=== PATIENT | female | born 1960 | race Caucasian/White ===

== ENCOUNTER 2017-02-12 11:38 | Emergency (ER) | payer OTHER ==
[~2017-02-12] VITALS: Ht 167.6 cm; Wt 68.0 kg
[~2017-02-12 11:38] MED LIST: ALPR.25 PO; ALPR.5 PO; CLIN1CAP6 PO; COLL30OI3 TOP; FLAG500T PO; IBUP600 PO; LACT PO; LEVO25TA36 PO; LEXA20TA PO; LORTA5 PO; METR500I3 PO; METR500T10 PO; MULT-65 PO; NORC5TAB PO; PRED1 PO; SILD20TA PO; SSD1CRE TOP; VITA500T83 PO; VITA50TA10 PO; XANA0.5T PO; [UNRECOGNIZED DRUG - CODE] TOPICAL
[2017-02-12 11:40] VITALS: BP 125/63; PULSE 86; RESP 20; TEMP 98.7; O2SAT 97
--- NOTE | 2017-02-12 11:45 | PD ---
Physical Exam Date Seen by Provider: Feb 12, 2017 Time Seen by Provider: 11:43 Narrative 56 yo female that presents to the ED for "blocked salivary gland". Went to PCP and was told to come to the ED if it turns red or causes pain with swallowing. Has immune disorder and has had this in the past. Pain is 9/10. No other complaints. Took clindamycin and flagyl. Vitals sign stable. Patient awaiting bed placement Data Data Last Documented VS Vital Signs Date Time Temp Pulse Resp B/P Pulse Ox O2 Delivery O2 Flow Rate FiO2 02/12/17 11:40 98.7 86 20 125/63 97 Room Air [facility] Medical Record Reviewed: Yes Supervised Visit with JUANITO: No Alfonso Ospina Feb 12, 2017 11:45
[2017-02-12] MEDS ORDERED: ALPR.25 PO (12:26)
[2017-02-12] MEDS ORDERED: SILD20TA11 PO (12:26)
[2017-02-12] MEDS ORDERED: PRED5TAB PO (12:26)
[2017-02-12] MEDS ORDERED: ESCI20TA PO (12:26)
[2017-02-12] MEDS ORDERED: LEVO200T4 PO (12:26)
--- NOTE | 2017-02-12 12:59 | PD ---
HPI Chief Complaint: Facial Pain or Swelling Time Seen by Provider: 12:43 Travel History International Travel<30 days: No Contact w/Intl Traveler<30days: No Traveled to known affect area: No History of Present Illness HPI Patient 56-year-old female with a history of scleroderma presents with facial swelling to the right side of her neck and face for the past few days. Patient states took the Cipro and Flagyl at home that she had left over for an infection of her right hand. Patient states she went to her primary care physician who recommended that she come in to the emergency department to be seen and evaluated. She is denying any fevers. She states she's also noticed that she's had some hoarseness of voice. Denies any weight loss. Denies any dental problems. PFSH Past Medical History Hx Anticoagulant Therapy: Yes (325MG ASA DAILY) Arthritis: Yes Anxiety: Yes Depression: No Cancer: No Cardiovascular Problems: No Diabetes: No Endocrine: Yes Genitourinary: No Hepatitis: No Hiatal Hernia: No Immune Disorder: Yes (SCLERODERMA; MIXED CONNECTIVE TISSUE DISEASE) Medical other: Yes Musculoskeletal: Yes (ARTHRITIS) Neurologic: Yes Psychiatric: Yes (ANXIETY) Respiratory: No Migraines: No (OCCASIONALLY) Thyroid Disease: Yes (hypo) ?: Not Past Surgical History Abdominal Surgery: No Body Medical Devices: N/A Cardiac Surgery: No Ear Surgery: No Endocrine Surgery: No Eye Surgery: Yes (BILATERAL CATARACTS REMOVED) Genitourinary Surgery: No Gynecologic Surgery: Yes (D&C ; OVARIAN CYST EXCISION) Oral Surgery: Yes (CROWNS) Pacemaker: No Thoracic Surgery: No Other Surgery: Yes (stem cell grafts to left thumb and left middle finger.) Social History Alcohol Use: No Tobacco Use: No Substance Use: No Allergies-Medications (Allergen,Severity, Reaction): Coded Allergies: Ancef (Verified Allergy, Severe, Swelling, 02/12/17) Diflucan (Verified Allergy, Severe, HIVES, ITCHING, 02/12/17) CANNOT TOLERATE GENERIC Erythromycins (Verified Allergy, Severe, HIVES, ITCHING, 02/12/17) Percocet (Verified Allergy, Severe, 02/12/17) Rocephin (Verified Allergy, Severe, Swelling, 02/12/17) CAN TOLERATE WITH BENADRYL Succinylcholine (Verified Allergy, Severe, Drowsiness, 02/12/17) Sulfa (Verified Allergy, Severe, HIVES, ITCHING, 02/12/17) Vancomycin (Verified Allergy, Severe, HIVES, ITCHING, 02/12/17) Reported Meds & Prescriptions Reported Meds & Active Scripts Active Medrol Dosepak (Methylprednisolone) 4 Mg Dspk 4 Mg PO DIRECTED Per Pharmacist direction Pil[place] 5 Mg Tab 5 Mg PO Q8HR Flagyl (Metronidazole) 500 Mg Tab 500 Mg PO BID 10 Days Clindamycin (Clindamycin HCl) 300 Mg Cap 300 Mg PO Q6H 10 Days [place] (Hydrocodone-Acetaminophen) 5-325 mg Tab 1-2 Tab PO Q6H PRN Metronidazole 500 Mg Tab 500 Mg PO BID Clindamycin (Clindamycin HCl) 300 Mg Cap 300 Mg PO Q6H Reported Escitalopram (Escitalopram Oxalate) 20 Mg Tab 20 Mg PO DAILY Xanax (Alprazolam) 0.25 Mg Tab 0.25 Mg PO HS PRN Sildenafil 20 Mg Tab 20 Mg PO BID Levothyroxine (Levothyroxine Sodium) 200 Mcg Tab 625 Mcg PO DAILY Prednisone 5 Mg Tab 5 Mg PO DAILY Review of Systems Except as stated in HPI: all other systems reviewed are Neg Physical Exam Narrative GENERAL: WD, WN in nad. SKIN: Warm and dry. HEAD: Atraumatic. Normocephalic. EYES: Pupils equal and round. No scleral icterus. No injection or drainage. ENT: No nasal bleeding or discharge. Mucous membranes pink and moist. NECK: Trachea midline. No JVD. Tender swelling to right sided of neck just at mandible and just over mandible. No lymphadenopathy. Swallow intact. Airway patent. CARDIOVASCULAR: Regular rate and rhythm. RESPIRATORY: No accessory muscle use. Clear to auscultation. Breath sounds equal bilaterally. GASTROINTESTINAL: Abdomen soft, non-tender, nondistended. Hepatic and splenic margins not palpable. MUSCULOSKELETAL: Extremities without clubbing, cyanosis, or edema. No obvious deformities. NEUROLOGICAL: Awake and alert. No obvious cranial nerve deficits. Motor grossly within normal limits. Five out of 5 muscle strength in the arms and legs. Normal speech. PSYCHIATRIC: Appropriate mood and affect; insight and judgment normal. Data Data Last Documented VS Vital Signs Date Time Temp Pulse Resp B/P Pulse Ox O2 Delivery O2 Flow Rate FiO2 02/12/17 16:30 67 20 129/69 98 Room Air 02/12/17 11:40 98.7 Orders Complete Blood Count With Diff (02/12/17 12:46) Comprehensive Metabolic Panel (02/12/17 12:46) Magnesium (Mg) (02/12/17 12:46) Prothrombin Time / Inr (Pt) (02/12/17 12:46) Act Partial Throm Time (Ptt) (02/12/17 12:46) Ecg Monitoring (02/12/17 12:46) Iv Access Insert/Monitor (02/12/17 12:46) Oximetry (02/12/17 12:46) Oxygen Administration (02/12/17 12:46) Sodium Chloride 0.9% Flush (Ns Flush) (02/12/17 13:00) Chest, Pa & Lat (02/12/17 12:46) Ct Brain W/O Iv Contrast(Rout) (02/12/17 ) Ct Soft Tiss Neck W Iv Cont (02/12/17 ) Iohexol 350 Inj (Omnipaque 350 Inj) (02/12/17 14:59) Ibuprofen (Motrin) (02/12/17 15:30) Labs Laboratory Tests Test 02/12/17 13:10 White Blood Count 12.3 TH/MM3 Red Blood Count 3.56 MIL/MM3 Hemoglobin 10.8 GM/DL Hematocrit 32.2 % Mean Corpuscular Volume 90.5 FL Mean Corpuscular Hemoglobin 30.4 PG Mean Corpuscular Hemoglobin 33.6 % Concent Red Cell Distribution Width 15.4 % Platelet Count 185 TH/MM3 Mean Platelet Volume 8.4 FL Neutrophils (%) (Auto) 84.8 % Lymphocytes (%) (Auto) 5.8 % Monocytes (%) (Auto) 8.6 % Eosinophils (%) (Auto) 0.4 % Basophils (%) (Auto) 0.4 % Neutrophils # (Auto) 10.4 TH/MM3 Lymphocytes # (Auto) 0.7 TH/MM3 Monocytes # (Auto) 1.1 TH/MM3 Eosinophils # (Auto) 0.0 TH/MM3 Basophils # (Auto) 0.0 TH/MM3 CBC Comment AUTO DIFF Differential Total Cells 100 Counted Neutrophils % (Manual) 74 % Band Neutrophils % 10 % Lymphocytes % 7 % Monocytes % 9 % Neutrophils # (Manual) 10.3 TH/MM3 Differential Comment FINAL DIFF MANUAL Platelet Estimate NORMAL Platelet Morphology Comment CLUMPED Red Cell Morphology Comment NORMAL Prothrombin Time 10.3 SEC Prothromb Time International 0.9 RATIO Ratio Activated Partial 27.0 SEC Thromboplast Time Sodium Level 139 MEQ/L Potassium Level 4.4 MEQ/L Chloride Level 105 MEQ/L Carbon Dioxide Level 26.2 MEQ/L Anion Gap 8 MEQ/L Blood Urea Nitrogen 21 MG/DL Creatinine 1.30 MG/DL Estimat Glomerular Filtration 43 ML/MIN Rate Random Glucose 106 MG/DL Calcium Level 8.8 MG/DL Magnesium Level 2.2 MG/DL Total Bilirubin 0.3 MG/DL Aspartate Amino Transf 29 U/L (AST/SGOT) Alanine Aminotransferase 23 U/L (ALT/SGPT) Alkaline Phosphatase 76 U/L Total Protein 7.0 GM/DL Albumin 2.9 GM/DL [facility] Medical Decision Making Medical Screen Exam Complete: Yes Emergency Medical Condition: Yes Differential Diagnosis Sialoadenitis, parotiditis, mass, infection. Narrative Course Last [address] 02/12/17 0000 Signed Impressions: Service Date/Time: Sunday, February 12, 2017 14:59 - CONCLUSION: Markedly abnormal right neck probably related to the parotid gland. Sialoadenitis would be consideration. A neoplastic or an inflammatory process in the dental origin is thought to be less likely. Darien Hankins MD FACR Head CT 02/12/17 0000 Signed Impressions: Service Date/Time: Sunday, February 12, 2017 14:55 - CONCLUSION: Unremarkable exam. Efren Sauceda MD Patient appears well, declined pain medication initially. Then given ibuprofen. States its ok until she touches it. Patient discussed with Dr. Culver. He recommends augmentin, pilocarpine, medrol dose pack and follow up with him on wednesday (three days). Patient is on chronic steroids. Has allergy to ancef but cannot remember specific reaction. Will use clindamycin instead which she has not had problems with. No history of GB disease nor glaucoma. Will prescribe flagyl for history of C-diff. Diagnosis Primary Impression: Sialadenitis Referrals: Deni Culver MD Additional Instructions: Call Dr. Culver at [phone], he can see you on Wednesday in his office in [place]. Med/Other Pt SpecificInfo: Prescription(s) given Scripts Methylprednisolone Dosepak (Medrol Dosepak)4 Mg Dspk4 Mg PO DIRECTED #1 DSPK Ref 0 Per Pharmacist direction Prov:Dash Hansen MD 02/12/17 [place] 5 Mg Tab5 Mg PO Q8HR #30 TAB Ref 0 Prov:Dash Hansen MD 02/12/17 Metronidazole (Flagyl)500 Mg [id number] Mg PO BID 10 Days Ref 0 Prov:Dash Hansen MD 02/12/17 Clindamycin 300 Mg [id number] Mg PO Q6H 10 Days Ref 0 Prov:Dash Hansen MD 02/12/17 Disposition: 01 DISCHARGE HOME Condition: Stable Dash Hansen MD Feb 12, 2017 12:59
[2017-02-12] MEDS ORDERED: SODIUM CHLORIDE 0.9% FLUSH 10 ML FLUSH IVF PRN (13:00)
[2017-02-12 13:32] LABS: AUTOMATED NEUTROPHIL # 10.4 TH/MM3 (1.8-7.7); BASOPHIL % 0.4 % (0.0-2.0); EOSINOPHIL % 0.4 % (0.0-4.0); HEMATOCRIT 32.2 % (35.0-46.0); LYMPH % 5.8 % (9.0-44.0); LYMPHOCYTE # 0.7 TH/MM3 (1.0-4.8); MEAN CELL VOLUME 90.5 FL (80.0-100.0); MEAN CORPUSCULAR HEMOGLOBIN 30.4 PG (27.0-34.0); MEAN CORPUSCULAR HGB CONC 33.6 % (32.0-36.0); MONO % 8.6 % (0.0-8.0); NEUT % 84.8 % (16.0-70.0); RED BLOOD COUNT 3.56 MIL/MM3 (4.00-5.30); RED CELL DISTRIBUTION WIDTH 15.4 % (11.6-17.2); WHITE BLOOD COUNT 12.3 TH/MM3 (4.0-11.0)
--- NOTE | 2017-02-12 13:35 | RADRPT ---
EXAM DATE/TIME: 02/12/2017 13:06 [facility] COMPARISON: No previous studies available for comparison. INDICATIONS : Chest pain. MEDICAL HISTORY : None. SURGICAL HISTORY : None. ENCOUNTER: Initial ACUITY: 4 - 6 days PAIN SCORE: 3/10 LOCATION: Bilateral chest FINDINGS: The lungs are clear without infiltrate, nodule, or mass. There is no appreciable pleural effusion fo r technique. Heart and mediastinum are unremarkable. IMPRESSION: No acute cardiopulmonary disease. Nieves Faulkner MD on February 12, 2017 at 13:32 Board Certified Radiologist. This report was verified electronically.
[2017-02-12 13:44] LABS: HEMO FLAGS AUTO DIFF; PLATELET COUNT 185 TH/MM3 (150-450)
[2017-02-12 13:54] LABS: ALT (GPT) 23 U/L (10-53); ANION GAP 8 MEQ/L (5-15); AST (GOT) 29 U/L (15-37); BICARBONATE 26.2 MEQ/L (21.0-32.0); BLOOD UREA NITROGEN 21 MG/DL (7-18); CHLORIDE 105 MEQ/L (98-107); GLOMERULAR FILTRATION RATE 43 ML/MIN (>89); MAGNESIUM 2.2 MG/DL (1.5-2.5); POTASSIUM 4.4 MEQ/L (3.5-5.1); SODIUM (NA) 139 MEQ/L (136-145)
[2017-02-12 13:56] LABS: ALKALINE PHOSPHATASE 76 U/L (45-117); TOTAL BILIRUBIN ADULT 0.3 MG/DL (0.2-1.0)
[2017-02-12 13:57] LABS: INTERNATIONAL NORMALIZED RATIO 0.9 RATIO; PROTHROMBIN TIME - PATIENT 10.3 SEC (9.8-11.6)
[2017-02-12 14:18] LABS: BANDS 10 % (0-6); NEUTROPHIL # MANUAL DIFF 10.3 TH/MM3 (1.8-7.7); POLYS (SEG NEUTROPHILS) 74 % (16-70); WBC DIFF SAMPLE 100
[2017-02-12 14:19] LABS: PLATELET ESTIMATE SMEAR NORMAL (NORMAL); PLATELET MORPHOLOGY CLUMPED (NORMAL); SCAN/DIFF FINAL DIFF MANUAL
[2017-02-12 14:30] VITALS: BP 133/64; PULSE 90; RESP 16; O2SAT 97
[2017-02-12] MEDS ORDERED: IOHEXOL 350 MG/ML 10 ML VIAL (for RAD DIAG) IV ONE (14:59)
--- NOTE | 2017-02-12 15:10 | RADRPT ---
EXAM DATE/TIME: 02/12/2017 14:55 [facility] COMPARISON: No previous studies available for comparison. INDICATIONS : Cephalgia. Right neck and facial swelling with difficulty swallowing. RADIATION DOSE: 56.35 CTDIvol (mGy) MEDICAL HISTORY : None SURGICAL HISTORY : None. ENCOUNTER: Initial ACUITY: 3 days PAIN SCALE: 5/10 LOCATION: Right neck TECHNIQUE: Multiple contiguous axial images were obtained of the head. Using automated exposure control and adj ustment of the mA and/or kV according to patient size, radiation dose was kept as low as reasonably a chievable to obtain optimal diagnostic quality images. FINDINGS: CEREBRUM: The ventricles are normal for age. No evidence of midline shift, mass lesion, hemorrhage or acute in farction. No extra-axial fluid collections are seen. POSTERIOR FOSSA: The cerebellum and brainstem are intact. The 4th ventricle is midline. The cerebellopontine angle i s unremarkable. EXTRACRANIAL: The visualized portion of the orbits is intact. SKULL: The calvaria is intact. No evidence of skull fracture. CONCLUSION: Unremarkable exam. Efren Sauceda MD on February 12, 2017 at 15:02 Board Certified Radiologist. This report was verified electronically.
[2017-02-12 15:17] VITALS: BP 177/87; PULSE 89; RESP 18; O2SAT 99
[2017-02-12] MEDS ORDERED: IBUPROFEN 600 MG TAB PO ONE (15:30)
--- NOTE | 2017-02-12 15:54 | RADRPT ---
EXAM DATE/TIME: 02/12/2017 14:59 [facility] COMPARISON: No previous studies available for comparison. INDICATIONS : Right neck and facial swelling with difficulty swallowing. IV CONTRAST: 50 cc Omnipaque 350 (iohexol) IV RADIATION DOSE: 12.78 CTDIvol (mGy) MEDICAL HISTORY : None SURGICAL HISTORY : Tonsillectomy. ENCOUNTER: Initial ACUITY: 3 days PAIN SCALE: 6/10 LOCATION: Right neck TECHNIQUE: Volumetric scanning of the neck was performed. Using automated exposure control and a djustment of the mA and/or kV according to patient size, radiation dose was kept as low as reasonably achievable to obtain optimal diagnostic quality images. FINDINGS: There is marked induration around the right parotid and the right periparotid space. T here is in duration along the parotid duct without obvious stone. Extensive artifact from dentition makes detection of distal stone very difficult. There is minimal nonspecific adenopathy on the right. Induration does extend along the right neck ov er the top of the sternocleidomastoid down to the level of the clavicle. There is a very small amount of air in the lingual artery space on the right that is probably normal. I do not see a defined abscess. CONCLUSION: Markedly abnormal right neck probably related to the parotid gland. Sialoadenitis wo uld be consideration. A neoplastic or an inflammatory process in the dental origin is thought to be less likely. Darien Hankins MD FACR on February 12, 2017 at 15:42 Board Certified Radiologist. This report was verified electronically.
[2017-02-12 16:30] VITALS: BP 129/69; PULSE 67; RESP 20; O2SAT 98
[2017-02-12] MEDS ORDERED: METR-1 PO (16:49)
[2017-02-12] MEDS ORDERED: PILO5TAB3 PO (16:49)
[2017-02-12] MEDS ORDERED: MEDR4PAK PO (16:49)
[2017-02-12] MEDS ORDERED: CLIN1CAP6 PO (16:49)
[2017-03-18] MEDS ORDERED: NYST1000 SWISH-SWAL (08:56)
== END 2017-02-12 17:00 | disposition home or self-care (01) ==
LOC: NEPD 11:38
DX: K11.20 Sialoadenitis, unspecified (principal); R49.0 Dysphonia; E07.9 Disorder of thyroid, unspecified; Z79.82 Long term (current) use of aspirin; Z79.899 Other long term (current) drug therapy; Z87.2 Personal history of diseases of the skin and subcutaneous tissue; Z87.39 Personal history of other diseases of the musculoskeletal system and connective tissue; Z86.59 Personal history of other mental and behavioral disorders; Z86.69 Personal history of other diseases of the nervous system and sense organs
CPT/HCPCS: 70450; 70491; 71020; 80053; 83735; 85007; 85027; 85610; 85730; 99284; Q9967

== ENCOUNTER 2017-02-15 12:04 | Inpatient (IN) | payer OTHER, MEDICARE ==
[~2017-02-15] VITALS: Ht 167.6 cm; Wt 68.2 kg
[~2017-02-15 12:04] MED LIST changes: -ALPR.5 PO; -COLL30OI3 TOP; +ESCI20TA PO; -FLAG500T PO; -IBUP600 PO; -LACT PO; +LEVO200T4 PO; -LEVO25TA36 PO; -LEXA20TA PO; -LORTA5 PO; +MEDR4PAK PO; +METR-1 PO; -METR500I3 PO; -MULT-65 PO; +PILO5TAB3 PO; -PRED1 PO; +PRED5TAB PO; -SILD20TA PO; +SILD20TA11 PO; -SSD1CRE TOP; -VITA500T83 PO; -VITA50TA10 PO; -XANA0.5T PO; -[UNRECOGNIZED DRUG - CODE] TOPICAL
[2017-02-15 12:06] VITALS: BP 180/84; PULSE 84; RESP 20; TEMP 98.9; O2SAT 100
--- NOTE | 2017-02-15 12:12 | PD ---
Physical Exam Time Seen by Provider: 12:10 Narrative 56 y/o female here for evaluation of worsening Sialoadenitis, rx clindamycin and flagyl. Seen here on February 12 and dx with Sialoadenitis. Seen by ENT Dr. Culver today and referred here for further evaluation. Denies fevers/chills. VSS Seen at triage desk. Awaiting bed placement. Data Data Last Documented VS Vital Signs Date Time Temp Pulse Resp B/P Pulse Ox O2 Delivery O2 Flow Rate FiO2 02/15/17 12:06 98.9 84 20 180/84 100 Room Air [facility] Medical Record Reviewed: Yes Supervised Visit with JUANITO: Jose Antonio Hernandez February 15, 2017 12:12
--- NOTE | 2017-02-15 15:40 | PD ---
HPI Chief Complaint: Facial Pain or Swelling Time Seen by Provider: 15:38 Travel History International Travel<30 days: No Contact w/Intl Traveler<30days: No Traveled to known affect area: No History of Present Illness HPI 56-year-old female came to the emergency room with history of right sided facial and neck swelling and pain. Patient says this has been going on for past 3-4 days. She was in the emergency room 3 days ago and after evaluation was discharged home in antibiotic clindamycin and Flagyl and was asked to follow -up with Dr. Culver. Patient says she's been taking the antibiotic that she supposed to. Today she went to see Dr. Culver in his office and was asked to go to the emergency room immediately since he was concerned for worsening infection. Patient says this morning when she woke up it was very painful and she was having hard time swallowing. Patient is in no respiratory distress currently. She is afebrile and vital signs are relatively stable. Patient has history of scleroderma and allergic to multiple antibiotics. [facility] Past Medical History Narrative Medical List of her past medical, surgical, social and family history is reviewed from the nursing note. Hx Anticoagulant Therapy: Yes (325MG ASA DAILY) Arthritis: Yes Anxiety: Yes Depression: No Cancer: No Cardiovascular Problems: No Diabetes: No Endocrine: Yes Genitourinary: No Hepatitis: No Hiatal Hernia: No Immune Disorder: Yes (SCLERODERMA; MIXED CONNECTIVE TISSUE DISEASE) Musculoskeletal: Yes (ARTHRITIS) Neurologic: Yes Psychiatric: Yes (ANXIETY) Respiratory: No Migraines: No (OCCASIONALLY) Thyroid Disease: Yes (hypo) Past Surgical History Abdominal Surgery: No Body Medical Devices: N/A Cardiac Surgery: No Ear Surgery: No Endocrine Surgery: No Eye Surgery: Yes (BILATERAL CATARACTS REMOVED) Genitourinary Surgery: No Gynecologic Surgery: Yes (D&C ; OVARIAN CYST EXCISION) Oral Surgery: Yes (CROWNS) Pacemaker: No Thoracic Surgery: No Other Surgery: Yes (stem cell grafts to left thumb and left middle finger.) Social History Alcohol Use: No Tobacco Use: No Substance Use: No Allergies-Medications (Allergen,Severity, Reaction): Coded Allergies: Ancef (Verified Allergy, Severe, Swelling, 02/15/17) Diflucan (Verified Allergy, Severe, HIVES, ITCHING, 02/15/17) CANNOT TOLERATE GENERIC Erythromycins (Verified Allergy, Severe, HIVES, ITCHING, 02/15/17) Percocet (Verified Allergy, Severe, rash, 02/15/17) Rocephin (Verified Allergy, Severe, Swelling, 02/15/17) CAN TOLERATE WITH BENADRYL Succinylcholine (Verified Allergy, Severe, Drowsiness, 02/15/17) Sulfa (Verified Allergy, Severe, HIVES, ITCHING, 02/15/17) Vancomycin (Verified Allergy, Severe, HIVES, ITCHING, 02/15/17) Comments List of her allergies reviewed from the nursing note. Reported Meds & Prescriptions Reported Meds & Active Scripts Active Pilocarpine 5 Mg Tab 5 Mg PO Q8HR Flagyl (Metronidazole) 500 Mg Tab 500 Mg PO BID 10 Days Clindamycin (Clindamycin HCl) 300 Mg Cap 300 Mg PO Q6H 10 Days [place] (Hydrocodone-Acetaminophen) 5-325 mg Tab 1-2 Tab PO Q6H PRN Reported Escitalopram (Escitalopram Oxalate) 20 Mg Tab 20 Mg PO DAILY Xanax (Alprazolam) 0.25 Mg Tab 0.25 Mg PO HS PRN Sildenafil 20 Mg Tab 20 Mg PO BID Levothyroxine (Levothyroxine Sodium) 200 Mcg Tab 625 Mcg PO DAILY Prednisone 5 Mg Tab 5 Mg PO DAILY Narrative Medication List of her home medications reviewed from the nursing note. Review of Systems Except as stated in HPI: all other systems reviewed are Neg Physical Exam Narrative GENERAL: Awake, alert, anxious, moderate distress SKIN: Focused skin assessment warm/dry. Erythematous and warm to touch over the right cheek and neck area HEAD: Atraumatic. Normocephalic. EYES: Pupils equal and round. No scleral icterus. No injection or drainage. ENT: No nasal bleeding or discharge. Mucous membranes pink and moist. Tender right cheek and anterior neck swelling that is erythematous and warm to touch. NECK: Trachea midline. No JVD. No stridor CARDIOVASCULAR: Regular rate and rhythm. No murmur appreciated. RESPIRATORY: No accessory muscle use. Clear to auscultation. Breath sounds equal bilaterally. GASTROINTESTINAL: Abdomen soft, non-tender, nondistended. Hepatic and splenic margins not palpable. MUSCULOSKELETAL: No obvious deformities. No clubbing. No cyanosis. No edema. NEUROLOGICAL: Awake and alert. No obvious cranial nerve deficits. Motor grossly within normal limits. Normal speech. PSYCHIATRIC: Appropriate mood and affect; insight and judgment normal. Data Data Last Documented VS Vital Signs Date Time Temp Pulse Resp B/P Pulse Ox O2 Delivery O2 Flow Rate FiO2 02/15/17 17:23 16 02/15/17 16:50 98.1 77 150/82 99 Room Air Orders Complete Blood Count With Diff (02/15/17 15:59) Basic Metabolic Panel (Bmp) (02/15/17 15:59) C-Reactive Protein (Crp) (02/15/17 15:59) Blood Culture (02/15/17 15:59) Sodium Chlor 0.9% 1000 Ml Inj (Ns 1000 M (02/15/17 16:00) Cefepime Inj (Maxipime Inj) (02/15/17 16:15) Metronidazole 500 Mg Inj (Flagyl 500 Mg (02/15/17 16:15) Ibuprofen (Motrin) (02/15/17 16:15) Labs Laboratory Tests Test 02/15/17 16:11 White Blood Count 13.8 TH/MM3 Red Blood Count 3.89 MIL/MM3 Hemoglobin 11.8 GM/DL Hematocrit 34.8 % Mean Corpuscular Volume 89.5 FL Mean Corpuscular Hemoglobin 30.2 PG Mean Corpuscular Hemoglobin 33.8 % Concent Red Cell Distribution Width 15.0 % Platelet Count 141 TH/MM3 Mean Platelet Volume 10.9 FL Neutrophils (%) (Auto) 85.6 % Lymphocytes (%) (Auto) 6.0 % Monocytes (%) (Auto) 8.1 % Eosinophils (%) (Auto) 0.1 % Basophils (%) (Auto) 0.2 % Neutrophils # (Auto) 11.8 TH/MM3 Lymphocytes # (Auto) 0.8 TH/MM3 Monocytes # (Auto) 1.1 TH/MM3 Eosinophils # (Auto) 0.0 TH/MM3 Basophils # (Auto) 0.0 TH/MM3 CBC Comment DIFF FINAL Differential Comment Sodium Level 137 MEQ/L Potassium Level 4.1 MEQ/L Chloride Level 102 MEQ/L Carbon Dioxide Level 28.8 MEQ/L Anion Gap 6 MEQ/L Blood Urea Nitrogen 12 MG/DL Creatinine 0.88 MG/DL Estimat Glomerular Filtration 67 ML/MIN Rate Random Glucose 106 MG/DL Calcium Level 9.1 MG/DL C-Reactive Protein 16.50 MG/DL MDM Medical Decision Making Medical Screen Exam Complete: Yes Emergency Medical Condition: Yes Medical Record Reviewed: Yes Differential Diagnosis Parotitis, parotid abscess Narrative Course 5:26 PM patient was given IV cefepime and Flagyl. She is allergic to a number of antibiotics. Dr. Culver came by to see her and said he would consult on her. Patient's white count has gone up slightly from her last and CRP is significantly elevated. She will need to be admitted for outpatient treatment failure. Awaiting for the hospitalist to call back. Critical Care Narrative Aggregate critical care time was 30 minutes. Time to perform other separately billable procedures was not included in the critical care time. My time did not include minutes spent treating any other patients simultaneously or on activities that did not directly contribute to the patient's treatment. The services I provided to this patient were to treat and/or prevent clinically significant deterioration that could result And, brought spectrum antibiotic. I provided critical care services requiring my management, as noted below: Chart data review, documentation time, medication orders and management, vital sign assessments/reviewing monitor data, ordering and reviewing lab tests, ordering and interpreting/reviewing x-rays and diagnostic studies, care of the patient and discussion of the patient with the admitting physicians. Procedures EKG Prior to Arrival: No Physician Communication Physician Communication Dr. Culver Diagnosis Primary Impression: Acute parotitis Additional Impression: Failure of outpatient treatment Admitting Information Admitting Physician Requests: Manjula Piña MD February 15, 2017 15:40
[2017-02-15] MEDS ORDERED: SODIUM CHLOR 0.9% 1000 ML INJ 1,000 ML IV ONE (16:00)
[2017-02-15] MEDS ORDERED: metroNIDAZOLE 500 MG INJ 100 ML IV ONE (16:15)
[2017-02-15] MEDS ORDERED: IBUPROFEN 600 MG TAB PO ONE (16:15)
[2017-02-15] MEDS ORDERED: CEFEPIME INJ 2,000 MG in SODIUM CHLORIDE 0.9% INJ 100 ML IV ONE (16:15)
[2017-02-15 16:50] VITALS: BP 150/82; PULSE 77; RESP 16; TEMP 98.1; O2SAT 99
[2017-02-15 17:00] LABS: AUTOMATED NEUTROPHIL # 11.8 TH/MM3 (1.8-7.7); BASOPHIL % 0.2 % (0.0-2.0); EOSINOPHIL % 0.1 % (0.0-4.0); HEMATOCRIT 34.8 % (35.0-46.0); HEMO FLAGS DIFF FINAL; LYMPHOCYTE # 0.8 TH/MM3 (1.0-4.8); MEAN CELL VOLUME 89.5 FL (80.0-100.0); MEAN CORPUSCULAR HEMOGLOBIN 30.2 PG (27.0-34.0); MEAN CORPUSCULAR HGB CONC 33.8 % (32.0-36.0); MONO % 8.1 % (0.0-8.0); NEUT % 85.6 % (16.0-70.0); PLATELET COUNT 141 TH/MM3 (150-450); RED BLOOD COUNT 3.89 MIL/MM3 (4.00-5.30); WHITE BLOOD COUNT 13.8 TH/MM3 (4.0-11.0)
[2017-02-15 17:20] LABS: BICARBONATE 28.8 MEQ/L (21.0-32.0); POTASSIUM 4.1 MEQ/L (3.5-5.1)
[2017-02-15] MEDS ORDERED: NALOXONE HCL 0.4 MG/ML AMP IV PRN (18:00)
[2017-02-15] MEDS ORDERED: ACETAMINOPHEN 325 MG TAB PO PRN (18:00)
[2017-02-15] MEDS ORDERED: SODIUM CHLORIDE 0.9% FLUSH 10 ML FLUSH IV FLUSH PRN (18:00)
[2017-02-15] MEDS ORDERED: ONDANSETRON HCL 4 MG/2 ML VIAL IVP PRN (18:00)
[2017-02-15] MEDS ORDERED: MAGNESIUM HYDROXIDE SUSP 30 ML CUP PO PRN (18:00)
[2017-02-15] MEDS: ENOXAPARIN SODIUM 40 MG/0.4 ML SYRINGE SQ SCH (18:11)
--- NOTE | 2017-02-15 18:44 | HHI.HP ---
[facility] Indra Floyd MD Admission Diagnosis acute parotitis Diagnoses: Chief Complaint: Right facial swelling, pain. Travel History International Travel<30 Days: No Contact w/Intl Traveler <30 Da: No Traveled to Known Affected Are: No History of Present Illness Ms. Whiltock is a pleasant 56 year old female with a history of scleroderma, mixed connective tissue disease, hypothyroidism who presents to the ED on 02/15/2017 on the advise of her ENT physician Dr. Culver due to concern over worsening right sided parotitis. About 7 days prior to this admission, patient started noticing right sided jaw area hardening. She reports no fever, chills. She took ibuprofen which did not provide any relief. She was evaluated in the ED 3 days prior to this admission and was discharged on Clindamycin and Flagyl. Today, patient went for a follow up with ENT and she was asked to come to the ED. At the time of this evaluation, patient is doing well. She complains of significant pain from her right parotid gland swelling. She reports no airway compromise. She has some difficulty with swallowing but feels that she can tolerate full liquid diet. She reports no changes in her bowel or bladder habits. Denies any chest pain, shortness of breath, cough. She is allergic to wide range of abx. She has taken penicillin before without difficulty, however. 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 Reported Medications [place] 5 Mg Tab 5 Mg PO Q8HR Flagyl (Metronidazole) 500 Mg Tab 500 Mg PO BID 10 Days Clindamycin (Clindamycin HCl) 300 Mg Cap 300 Mg PO Q6H 10 Days Bernard (Hydrocodone-Acetaminophen) 5-325 mg Tab 1-2 Tab PO Q6H PRN Reported Escitalopram (Escitalopram Oxalate) 20 Mg Tab 20 Mg PO DAILY Xanax (Alprazolam) 0.25 Mg Tab 0.25 Mg PO HS PRN Sildenafil 20 Mg Tab 20 Mg PO BID Levothyroxine (Levothyroxine Sodium) 200 Mcg Tab 625 Mcg PO DAILY Prednisone 5 Mg Tab 5 Mg PO DAILY Allergies: Coded Allergies: Ancef (Verified Allergy, Severe, Swelling, 02/15/17) Diflucan (Verified Allergy, Severe, HIVES, ITCHING, 02/15/17) CANNOT TOLERATE GENERIC Erythromycins (Verified Allergy, Severe, HIVES, ITCHING, 02/15/17) Percocet (Verified Allergy, Severe, rash, 02/15/17) Rocephin (Verified Allergy, Severe, Swelling, 02/15/17) CAN TOLERATE WITH BENADRYL Succinylcholine (Verified Allergy, Severe, Drowsiness, 02/15/17) Sulfa (Verified Allergy, Severe, HIVES, ITCHING, 02/15/17) Vancomycin (Verified Allergy, Severe, HIVES, ITCHING, 02/15/17) Family History Mom - pancreatic cancer, DM, stroke, HTN, HLD Dad - COPD, asthma, CHF Social History No tobacco, alcohol or illicit drugs. Physical Exam Vital Signs Vital Signs Date Time Temp Pulse Resp B/P Pulse Ox O2 Delivery O2 Flow Rate FiO2 02/15/17 17:23 16 02/15/17 16:50 98.1 77 16 150/82 99 Room Air 02/15/17 16:20 16 02/15/17 12:06 98.9 84 20 180/84 100 Room Air Physical Exam GENERAL: This is a well-nourished, well-developed patient, in no apparent distress. SKIN: No rashes, ecchymoses or lesions. Warm and dry. HEAD: Atraumatic. Normocephalic. No temporal or scalp tenderness. EYES: Pupils equal round and reactive. No injection or drainage. ENT: Nose without bleeding, purulent drainage or septal hematoma. Airway patent. Right side of the parotid gland area swollen, exquisitely tender to light palpation. NECK: Trachea midline. No lymphadenopathy. Supple, nontender, no meningeal signs. CARDIOVASCULAR: Regular rate and rhythm without murmurs, gallops, or rubs. No JVD. RESPIRATORY: Clear to auscultation. Breath sounds equal bilaterally. No wheezes , rales, or rhonchi. GASTROINTESTINAL: Abdomen soft, non-tender, nondistended. No guarding. MUSCULOSKELETAL: Extremities without clubbing, cyanosis, or edema. NEUROLOGICAL: Awake and alert. Cranial nerves II through XII intact. No focal neurological deficits. Normal speech. Laboratory Laboratory Tests Test 02/15/17 16:11 White Blood Count 13.8 Red Blood Count 3.89 Hemoglobin 11.8 Hematocrit 34.8 Mean Corpuscular Volume 89.5 Mean Corpuscular Hemoglobin 30.2 Mean Corpuscular Hemoglobin 33.8 Concent Red Cell Distribution Width 15.0 Platelet Count 141 Mean Platelet Volume 10.9 Neutrophils (%) (Auto) 85.6 Lymphocytes (%) (Auto) 6.0 Monocytes (%) (Auto) 8.1 Eosinophils (%) (Auto) 0.1 Basophils (%) (Auto) 0.2 Neutrophils # (Auto) 11.8 Lymphocytes # (Auto) 0.8 Monocytes # (Auto) 1.1 Eosinophils # (Auto) 0.0 Basophils # (Auto) 0.0 CBC Comment DIFF FINAL Differential Comment Sodium Level 137 Potassium Level 4.1 Chloride Level 102 Carbon Dioxide Level 28.8 Anion Gap 6 Blood Urea Nitrogen 12 Creatinine 0.88 Estimat Glomerular Filtration 67 Rate Random Glucose 106 Calcium Level 9.1 C-Reactive Protein 16.50 Date/Time Procedure Status Source Growth 02/15/17 16:11 Aerobic Blood Culture Received Blood Peripheral Pending 02/15/17 16:11 Anaerobic Blood Culture Received Blood Peripheral Pending Result Diagram: 02/15/17 1611 02/15/17 1611 Assessment and Plan Problem List: (1) Acute parotitis ICD Code: K11.21 Status: Acute (2) Scleroderma ICD Code: M34.9 Status: Chronic (3) Hypertension ICD Code: I10 Status: Acute (4) Anxiety ICD Code: F41.9 Status: Acute Assessment and Plan Ms. Whitlock, 56, presents to the ED on 02/15/2017 due to worsening acute right sided parotitis. She was evaluated by ENT today and she was advised to come to the hospital. - Acute parotitis - Failed outpatient therapy with Clindamycin and Flagyl. - Dr. Culver (ENT) is following patient. - Start Cefepime 2g Q12hrs and Metronidazole 500mg IV Q6hrs. - Acetaminophen, Bernard, Dilaudid IV for pain PRN - Patient was on PO Prednisone. This was switched to IV dexamethasone 4 mg Q8hrs. - Once clinical improvements occur, we can consider switching to PO abx and discharge patient. - Accelerated Hypertension - Possibly due to use of Prednisone as well as Ibuprofen. - USP anti-hypertensives may not be necessary once patient stops taking steroid and NSAIDs. - Clonidine 0.1mg Q6hrs PRN - If BP is persistently high, first line BP meds - Lisinopril and Amlodipine could be considered. - Scleroderma - Mixed connective tissue disorder - Patient follows up with [facility]. - Anxiety/Depression - Continue Lexapro 20mg Qday and Xanax 0.25mg QHS. - Hypothyroidism - Continue Levothyroxine 62.5 mcg QAM. Full code. Lovenox. Physician Certification 2 Midnight Certification Type: Admission for Inpatient Services Order for Inpatient Services The services are ordered in accordance with Medicare regulations or non- Medicare payer requirements, as applicable. In the case of services not specified as inpatient-only, they are appropriately provided as inpatient services in accordance with the 2-midnight benchmark. Estimated LOS (days): 2 days is the estimated time the patient will need to remain in the hospital, assuming treatment plan goals are met and no additional complications. Post-Hospital Plan: Home Shanita Elmore DO February 15, 2017 18:44
[2017-02-15] MEDS ORDERED: ESCITALOPRAM OXALATE 20 MG TAB PO SCH (19:00)
[2017-02-15] MEDS ORDERED: predniSONE 5 MG TAB PO SCH (20:00)
[2017-02-15 20:20] VITALS: BP 179/103; PULSE 82; RESP 18; O2SAT 100
[2017-02-15] MEDS: ESCITALOPRAM OXALATE 20 MG TAB PO SCH (20:27)
[2017-02-15] MEDS ORDERED: DEXAMETHASONE SOD PHOS 20 MG/5 ML VIAL IV PUSH ONE (21:00)
[2017-02-15] MEDS ORDERED: SILDENAFIL CITRATE 20 MG TAB PO SCH (21:00)
[2017-02-15] MEDS: SODIUM CHLORIDE 0.9% FLUSH 10 ML FLUSH IV FLUSH SCH (21:02)
[2017-02-15] MEDS: IBUPROFEN 600 MG TAB PO SCH (21:02)
[2017-02-15] MEDS: ACETAMINOPHEN/HYDROcodone 325 MG/5 MG TAB PO PRN (21:03)
[2017-02-15] MEDS: PANTOPRAZOLE SODIUM 40 MG VIAL IV PUSH SCH (21:35)
[2017-02-15 22:05] VITALS: BP 191/85; PULSE 89; RESP 17; TEMP 99.6; O2SAT 96
[2017-02-15] MEDS: metroNIDAZOLE 500 MG INJ 100 ML IV SCH (22:54)
[2017-02-15] MEDS ORDERED: HYDROmorphone HCL PF 1 MG/ML VIAL IV PUSH ONE (23:15)
[2017-02-16] VITALS (7 sets, daily range): BP systolic 114–184; BP diastolic 65–96; PULSE 61–77; RESP 16–20; TEMP 98–99.4; O2SAT 95–98
[2017-02-16] MEDS: DEXAMETHASONE SOD PHOS 4 MG/ML VIAL IV PUSH SCH ×4 (03:00→22:55)
[2017-02-16] MEDS: metroNIDAZOLE 500 MG INJ 100 ML IV SCH ×4 (04:00→22:53)
[2017-02-16] MEDS: cloNIDine HCL 0.1 MG TAB PO PRN (04:48)
[2017-02-16] MEDS: LEVOTHYROXINE SODIUM 125 MCG TAB PO SCH (05:57)
[2017-02-16] MEDS: CEFEPIME INJ 2,000 MG in SODIUM CHLORIDE 0.9% INJ 100 ML IV SCH ×2 (05:57→20:02)
[2017-02-16 06:15] LABS: BICARBONATE 24.7 MEQ/L (21.0-32.0); POTASSIUM 4.4 MEQ/L (3.5-5.1)
[2017-02-16] MEDS ORDERED: predniSONE 5 MG TAB PO SCH (09:00)
[2017-02-16] MEDS ORDERED: PANTOPRAZOLE SOD 40 MG DELAYED RELEASE TAB PO SCH (09:00)
[2017-02-16] MEDS: LACTOBACILLUS ACIDOPHILUS TAB PO SCH ×3 (10:30→18:38)
[2017-02-16] MEDS: IBUPROFEN 600 MG TAB PO SCH ×2 (10:30→20:38)
[2017-02-16] MEDS: ACETAMINOPHEN/HYDROcodone 325 MG/5 MG TAB PO PRN ×2 (10:31→23:04)
[2017-02-16] MEDS: PANTOPRAZOLE SODIUM 40 MG VIAL IV PUSH SCH ×2 (10:31→20:38)
[2017-02-16] MEDS: SODIUM CHLORIDE 0.9% FLUSH 10 ML FLUSH IV FLUSH SCH ×2 (10:32→20:39)
[2017-02-16] MEDS: SILDENAFIL CITRATE 20 MG TAB PO SCH (12:01)
[2017-02-16 12:28] LABS: AUTOMATED NEUTROPHIL # 12.2 TH/MM3 (1.8-7.7); BASOPHIL % 0.2 % (0.0-2.0); HEMATOCRIT 31.2 % (35.0-46.0); HEMO FLAGS AUTO DIFF; LYMPH % 4.3 % (9.0-44.0); LYMPHOCYTE # 0.6 TH/MM3 (1.0-4.8); MEAN CELL VOLUME 90.5 FL (80.0-100.0); MEAN CORPUSCULAR HEMOGLOBIN 29.5 PG (27.0-34.0); MEAN CORPUSCULAR HGB CONC 32.6 % (32.0-36.0); MONO % 5.2 % (0.0-8.0); NEUT % 90.3 % (16.0-70.0); PLATELET COUNT 238 TH/MM3 (150-450); RED BLOOD COUNT 3.45 MIL/MM3 (4.00-5.30); RED CELL DISTRIBUTION WIDTH 15.2 % (11.6-17.2); WHITE BLOOD COUNT 13.5 TH/MM3 (4.0-11.0)
[2017-02-16 12:50] LABS: BANDS 17 % (0-6); METAMYELOCYTES 1 % (0-1); MYELOCYTES 1 % (0-0); NEUTROPHIL # MANUAL DIFF 11.9 TH/MM3 (1.8-7.7); PLATELET ESTIMATE SMEAR NORMAL (NORMAL); POLYS (SEG NEUTROPHILS) 69 % (16-70); WBC DIFF SAMPLE 100
[2017-02-16 12:51] LABS: PLATELET MORPHOLOGY NORMAL (NORMAL); SCAN/DIFF FINAL DIFF MANUAL
[2017-02-16] MEDS: ENOXAPARIN SODIUM 40 MG/0.4 ML SYRINGE SQ SCH (18:39)
[2017-02-16] MEDS: ESCITALOPRAM OXALATE 20 MG TAB PO SCH (20:38)
[2017-02-16] MEDS: ALPRAZolam 0.25 MG TAB PO PRN (23:03)
--- NOTE | 2017-02-16 23:07 | HHI.PR ---
Subjective Remarks Follow up for acute parotitis. Ms. Whitlock is doing well. Reports significant improvement today. No fever, chills. She is able to move her neck better, able to swallow better as well. Objective Vitals Vital Signs Date Time Temp Pulse Resp B/P Pulse Ox O2 Delivery O2 Flow Rate FiO2 02/16/17 21:20 98.4 74 18 173/78 97 02/16/17 19:48 98.8 71 20 137/65 98 02/16/17 15:52 98.7 65 17 114/70 97 02/16/17 12:22 98.0 64 17 142/70 98 02/16/17 11:30 16 02/16/17 11:30 16 02/16/17 07:57 98.0 61 17 179/96 97 02/16/17 04:00 98.7 76 16 184/86 98 02/16/17 00:00 99.4 77 16 179/84 95 I/O 02/15/17 02/15/17 02/15/17 02/16/17 02/16/17 02/16/17 07:00 15:00 23:00 07:00 15:00 23:00 Intake Total 200 ml 300 ml Balance 200 ml 300 ml Intake Oral 200 ml 300 ml Result Diagram: 02/16/17 1155 02/16/17 0431 Objective Remarks GENERAL: Alert, oriented x 3, NAD. SKIN: Warm and dry. HEAD: Normocephalic. EYES: No scleral icterus. No injection or drainage. NECK: Supple, trachea midline. No JVD or lymphadenopathy. Right jaw swelling is improved. Less tender to palpation. CARDIOVASCULAR: Regular rate and rhythm without murmurs, gallops, or rubs. RESPIRATORY: Breath sounds equal bilaterally. No accessory muscle use. GASTROINTESTINAL: Abdomen soft, non-tender, nondistended. MUSCULOSKELETAL: No cyanosis, or edema. BACK: Nontender without obvious deformity. No CVA tenderness. Procedures None. A/P Problem List: (1) Acute parotitis ICD Code: K11.21 Status: Acute (2) Scleroderma ICD Code: M34.9 Status: Chronic (3) Hypertension ICD Code: I10 Status: Acute (4) Anxiety ICD Code: F41.9 Status: Acute Assessment and Plan Ms. Whitlock, 56, presents to the ED on 02/15/2017 due to worsening acute right sided parotitis. She was evaluated by ENT and she was advised to come to the hospital. - Acute parotitis - Failed outpatient therapy with Clindamycin and Flagyl. - ENT is following patient. - Continue Cefepime 2g Q12hrs and Metronidazole 500mg IV Q6hrs. - Acetaminophen, [place], Dilaudid IV for pain PRN - Patient was on PO Prednisone. This was switched to IV dexamethasone 4 mg Q8hrs on 02/15/2017. - Anticipate discharge on 02/18/2017. - Accelerated Hypertension - Possibly due to use of Prednisone as well as Ibuprofen and pain. - BP is much improved, back to her baseline. - Scleroderma - Mixed connective tissue disorder - Patient follows up with [facility]ology. - Anxiety/Depression - Continue Lexapro 20mg Qday and Xanax 0.25mg QHS. - Hypothyroidism - Continue Levothyroxine 62.5 mcg QAM. Full code. Lovenox. Shanita Elmore DO February 16, 2017 23:07
[2017-02-17] VITALS (8 sets, daily range): BP systolic 120–208; BP diastolic 65–97; PULSE 57–75; RESP 17–20; TEMP 96.3–97.9; O2SAT 95–98
[2017-02-17] MEDS: cloNIDine HCL 0.1 MG TAB PO PRN (03:37)
[2017-02-17] MEDS: metroNIDAZOLE 500 MG INJ 100 ML IV SCH ×4 (03:37→21:37)
[2017-02-17] MEDS: DEXAMETHASONE SOD PHOS 4 MG/ML VIAL IV PUSH SCH ×3 (05:43→21:36)
[2017-02-17] MEDS: LEVOTHYROXINE SODIUM 125 MCG TAB PO SCH (05:43)
[2017-02-17] MEDS: CEFEPIME INJ 2,000 MG in SODIUM CHLORIDE 0.9% INJ 100 ML IV SCH ×2 (05:44→18:10)
[2017-02-17] MEDS ORDERED: hydrALAZINE HCL 50 MG TAB PO ONE (06:15)
[2017-02-17] MEDS: PANTOPRAZOLE SODIUM 40 MG VIAL IV PUSH SCH ×2 (08:20→21:36)
[2017-02-17] MEDS: LACTOBACILLUS ACIDOPHILUS TAB PO SCH ×3 (08:20→18:10)
[2017-02-17] MEDS: SODIUM CHLORIDE 0.9% FLUSH 10 ML FLUSH IV FLUSH SCH ×2 (08:21→21:37)
[2017-02-17] MEDS: IBUPROFEN 600 MG TAB PO SCH (08:21)
[2017-02-17] MEDS: SILDENAFIL CITRATE 20 MG TAB PO SCH (08:29)
--- NOTE | 2017-02-17 09:28 | HHI.PR ---
Subjective Remarks Follow up for acute parotitis. Ms. Whitlock is doing well. She reports further improvement of her right-sided jaw area swelling. Denies any fever or chills. She is able to tolerate diet much better. She requests advancing her diet. Objective Vitals Vital Signs Date Time Temp Pulse Resp B/P Pulse Ox O2 Delivery O2 Flow Rate FiO2 02/17/17 05:50 57 185/91 180/90 02/17/17 03:35 185/88 02/17/17 03:30 96.6 66 18 188/91 95 02/16/17 21:20 98.4 74 18 173/78 97 02/16/17 19:48 98.8 71 20 137/65 98 02/16/17 15:52 98.7 65 17 114/70 97 02/16/17 12:22 98.0 64 17 142/70 98 02/16/17 11:30 16 02/16/17 11:30 16 I/O 02/16/17 02/16/17 02/16/17 02/17/17 02/17/17 02/17/17 07:00 15:00 23:00 07:00 15:00 23:00 Intake Total 200 ml 300 ml 220 ml Balance 200 ml 300 ml 220 ml Intake Oral 200 ml 300 ml IV Total 220 ml Result Diagram: 02/16/17 1155 02/16/17 0431 Objective Remarks GENERAL: Alert, oriented x 3, NAD. SKIN: Warm and dry. HEAD: Normocephalic. EYES: No scleral icterus. No injection or drainage. NECK: Supple, trachea midline. No JVD or lymphadenopathy. Right jaw swelling is improved. Large indurated area noted. Mildly tender to palpation. CARDIOVASCULAR: Regular rate and rhythm without murmurs, gallops, or rubs. RESPIRATORY: Breath sounds equal bilaterally. No accessory muscle use. GASTROINTESTINAL: Abdomen soft, non-tender, nondistended. MUSCULOSKELETAL: No cyanosis, or edema. BACK: Nontender without obvious deformity. No CVA tenderness. Procedures None. A/P Problem List: (1) Acute parotitis ICD Code: K11.21 Status: Acute (2) Scleroderma ICD Code: M34.9 Status: Chronic (3) Hypertension ICD Code: I10 Status: Acute (4) Anxiety ICD Code: F41.9 Status: Acute Assessment and Plan Ms. Whitlock, 56, presents to the ED on 02/15/2017 due to worsening acute right sided parotitis. She was evaluated by ENT and she was advised to come to the hospital. - Acute parotitis - Failed outpatient therapy with Clindamycin and Flagyl. - ENT is following patient. - Continue Cefepime 2g Q12hrs and Metronidazole 500mg IV Q6hrs. - Acetaminophen, [place], Dilaudid IV for pain PRN - Patient was on PO Prednisone. This was switched to IV dexamethasone 4 mg Q8hrs on 02/15/2017. - Anticipate discharge on 02/18/2017. Possible oral regimen would be Clindamycin 450 mg by mouth every 8 hours and ciprofloxacin 750 mg by mouth every 12 hours. - Advance diet to regular diet. - Accelerated Hypertension - Possibly due to use of Prednisone as well as Ibuprofen and pain. - Discontinue ibuprofen. We'll continue to monitor blood pressure. Use when necessary medication for now. - Patient is advised to monitor her blood pressure at home. A blood pressure remains elevated, first on blood pressure medication such as lisinopril , amlodipine can be used. - Scleroderma - Mixed connective tissue disorder - Patient follows up with [facility] Rheumatology. - Anxiety/Depression - Continue Lexapro 20mg Qday and Xanax 0.25mg QHS. - Hypothyroidism - Continue Levothyroxine 62.5 mcg QAM. Full code. Lovenox. Shanita Elmore DO February 17, 2017 9:28 am
[2017-02-17] MEDS: ACETAMINOPHEN/HYDROcodone 325 MG/5 MG TAB PO PRN ×2 (13:44→21:36)
[2017-02-17] MEDS: ENOXAPARIN SODIUM 40 MG/0.4 ML SYRINGE SQ SCH (18:10)
[2017-02-17] MEDS: ALPRAZolam 0.25 MG TAB PO PRN (21:36)
[2017-02-17] MEDS: ESCITALOPRAM OXALATE 20 MG TAB PO SCH (21:36)
[2017-02-18] VITALS (7 sets, daily range): BP systolic 130–180; BP diastolic 79–98; PULSE 65–88; RESP 17–20; TEMP 97.5–99.4; O2SAT 94–99
[2017-02-18] MEDS: metroNIDAZOLE 500 MG INJ 100 ML IV SCH ×4 (04:57→21:51)
[2017-02-18] MEDS: LEVOTHYROXINE SODIUM 125 MCG TAB PO SCH (04:58)
[2017-02-18] MEDS: cloNIDine HCL 0.1 MG TAB PO PRN (05:02)
[2017-02-18] MEDS: CEFEPIME INJ 2,000 MG in SODIUM CHLORIDE 0.9% INJ 100 ML IV SCH ×2 (05:03→08:20)
[2017-02-18] MEDS: DEXAMETHASONE SOD PHOS 4 MG/ML VIAL IV PUSH SCH ×3 (05:03→21:47)
[2017-02-18] MEDS: LACTOBACILLUS ACIDOPHILUS TAB PO SCH ×3 (08:20→17:58)
[2017-02-18] MEDS: PANTOPRAZOLE SODIUM 40 MG VIAL IV PUSH SCH ×2 (08:20→20:14)
[2017-02-18] MEDS: SODIUM CHLORIDE 0.9% FLUSH 10 ML FLUSH IV FLUSH SCH ×2 (08:20→20:19)
--- NOTE | 2017-02-18 08:34 | HHI.PR ---
Subjective Remarks Follow up for acute parotitis. Ms. Whitlock is doing much better. Right sided jaw swelling is improved. No fever, chills. Objective Vitals Vital Signs Date Time Temp Pulse Resp B/P Pulse Ox O2 Delivery O2 Flow Rate FiO2 02/18/17 06:15 168/92 02/18/17 05:20 97.5 70 18 180/92 97 02/18/17 00:00 97.8 65 17 160/80 98 02/17/17 20:00 96.3 75 17 120/65 95 02/17/17 17:15 150/82 02/17/17 15:50 97.9 73 20 208/97 98 02/17/17 11:50 97.5 68 20 134/66 98 I/O 02/17/17 02/17/17 02/17/17 02/18/17 02/18/17 02/18/17 07:00 15:00 23:00 07:00 15:00 23:00 Intake Total 220 ml 840 ml Balance 220 ml 840 ml Intake Oral 620 ml IV Total 220 ml 220 ml # Voids 2 3 # Bowel Movements 0 Result Diagram: 02/16/17 1155 02/16/17 0431 Objective Remarks GENERAL: Alert, oriented x 3, NAD. SKIN: Warm and dry. HEAD: Normocephalic. EYES: No scleral icterus. No injection or drainage. NECK: Supple, trachea midline. No JVD or lymphadenopathy. Right jaw swelling is improved. Indurated area noted. Mildly tender to palpation. CARDIOVASCULAR: Regular rate and rhythm without murmurs, gallops, or rubs. RESPIRATORY: Breath sounds equal bilaterally. No accessory muscle use. GASTROINTESTINAL: Abdomen soft, non-tender, nondistended. MUSCULOSKELETAL: No cyanosis, or edema. BACK: Nontender without obvious deformity. No CVA tenderness. Procedures None. A/P Problem List: (1) Acute parotitis ICD Code: K11.21 Status: Acute (2) Scleroderma ICD Code: M34.9 Status: Chronic (3) Hypertension ICD Code: I10 Status: Acute (4) Anxiety ICD Code: F41.9 Status: Acute Assessment and Plan Ms. Whitlock, 56, presents to the ED on 02/15/2017 due to worsening acute right sided parotitis. She was evaluated by ENT and she was advised to come to the hospital. - Acute parotitis - Failed outpatient therapy with Clindamycin and Flagyl. - ENT is following patient. - Continue Cefepime 2g Q12hrs and Metronidazole 500mg IV Q6hrs. - Acetaminophen, [place], Dilaudid IV for pain PRN - Patient's parotitis is likely inflammatory and responded well to Decadron. - Will ask ID to give us an opinion on the need for any longer course of IV antibiotics. - Patient will likely improve on Decadron alone. Augmentin could be continued for a total of 14 day course of abx. - Accelerated Hypertension - Possibly due to use of Prednisone as well as Ibuprofen and pain. - Discontinued ibuprofen. We'll continue to monitor blood pressure. - Patient is advised to monitor her blood pressure at home. A blood pressure remains elevated, first on blood pressure medication such as lisinopril , amlodipine can be used. - Scleroderma - Mixed connective tissue disorder - Patient follows up with [facility]. - Anxiety/Depression - Continue Lexapro 20mg Qday and Xanax 0.25mg QHS. - Hypothyroidism - Continue Levothyroxine 62.5 mcg QAM. Full code. Lovenox. Shanita Elmore DO February 18, 2017 08:34
[2017-02-18] MEDS: SILDENAFIL CITRATE 20 MG TAB PO SCH (09:26)
[2017-02-18 10:53] LABS: AUTOMATED NEUTROPHIL # 9.8 TH/MM3 (1.8-7.7); BASOPHIL % 0.1 % (0.0-2.0); HEMATOCRIT 35.5 % (35.0-46.0); LYMPH % 8.1 % (9.0-44.0); LYMPHOCYTE # 0.9 TH/MM3 (1.0-4.8); MEAN CELL VOLUME 90.5 FL (80.0-100.0); MEAN CORPUSCULAR HEMOGLOBIN 29.6 PG (27.0-34.0); MEAN CORPUSCULAR HGB CONC 32.8 % (32.0-36.0); MONO % 4.2 % (0.0-8.0); NEUT % 87.6 % (16.0-70.0); RED BLOOD COUNT 3.92 MIL/MM3 (4.00-5.30); RED CELL DISTRIBUTION WIDTH 15.4 % (11.6-17.2); WHITE BLOOD COUNT 11.2 TH/MM3 (4.0-11.0)
[2017-02-18 11:44] LABS: PLATELET COUNT 333 TH/MM3 (150-450)
[2017-02-18 11:46] LABS: HEMO FLAGS AUTO DIFF
[2017-02-18 11:48] LABS: BANDS 12 % (0-6); METAMYELOCYTES 2 % (0-1); MYELOCYTES 2 % (0-0); NEUTROPHIL # MANUAL DIFF 9.4 TH/MM3 (1.8-7.7); PLATELET ESTIMATE SMEAR NORMAL (NORMAL); PLATELET MORPHOLOGY CLUMPED (NORMAL); POLYS (SEG NEUTROPHILS) 67 % (16-70); PROMYELOCYTES 1 % (0-0); SCAN/DIFF FINAL DIFF MANUAL; WBC DIFF SAMPLE 100
[2017-02-18] MEDS: ACETAMINOPHEN/HYDROcodone 325 MG/5 MG TAB PO PRN ×2 (13:28→21:46)
[2017-02-18] MEDS: ENOXAPARIN SODIUM 40 MG/0.4 ML SYRINGE SQ SCH (17:58)
--- NOTE | 2017-02-18 19:09 | HHI.PR ---
Addendum to Inpatient Note Additional Information pt seen today around 1900 in room 701 Full note to follow Noa Guzman MD February 18, 2017 19:09
--- NOTE | 2017-02-18 19:10 | PD.ID.CON ---
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 She was started on Clidamycin, for it and ( with Flagyl for C.diff profilaxis) and it did not help her She presented to the hospital 4 days ago and was started on decardonre aand cefepime. She noticed improvement within 1 day She has no fever, chill, malaise and her general condition was not affected. Her blood clx are negative from admission She was evaluated by ENT Review of Systems Gastrointestinal: COMPLAINS OF: Diarrhea, Difficulty Swallowing Musculoskeletal: COMPLAINS OF: Neck pain Except as stated in HPI: all other systems reviewed are Neg Past Family Social History Allergies: Coded Allergies: Ancef (Verified Allergy, Severe, Swelling, 02/15/17) Diflucan (Verified Allergy, Severe, HIVES, ITCHING, 02/15/17) CANNOT TOLERATE GENERIC Erythromycins (Verified Allergy, Severe, HIVES, ITCHING, 02/15/17) Percocet (Verified Allergy, Severe, rash, 02/15/17) Rocephin (Verified Allergy, Severe, Swelling, 02/15/17) CAN TOLERATE WITH BENADRYL Succinylcholine (Verified Allergy, Severe, Drowsiness, 02/15/17) Sulfa (Verified Allergy, Severe, HIVES, ITCHING, 02/15/17) Vancomycin (Verified Allergy, Severe, HIVES, ITCHING, 02/15/17) Past Medical History Scleroderma Mixed connective disease Past Surgical History 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 Active Ordered Medications Medications where reviewed in EMR Antibiotics Include: cefepime flagyl Family History Mom - pancreatic cancer, DM, stroke, HTN, HLD Dad - COPD, asthma, CHF Social History No tobacco, alcohol or illicit drugs. Physical Exam Vital Signs Vital Signs Date Time Temp Pulse Resp B/P Pulse Ox O2 Delivery O2 Flow Rate FiO2 02/18/17 16:35 98.0 88 18 167/79 98 02/18/17 11:50 98.6 74 20 130/90 95 02/18/17 07:50 97.5 68 20 162/98 94 02/18/17 06:15 168/92 02/18/17 05:20 97.5 70 18 180/92 97 02/18/17 00:00 97.8 65 17 160/80 98 02/17/17 20:00 96.3 75 17 120/65 95 Physical Exam CONSTITUTIONAL/GENERAL: This is an adequately nourished patient, in no apparent distress. TUBES/LINES/DRAINS: SKIN: No jaundice, rashes, or lesions. Skin temperature appropriate. Not diaphoretic. HEAD: Atraumatic. Normocephalic. EYES: Pupils equal and round and reactive. Extraocular motions intact. No scleral icterus. No injection or drainage. Fundi not examined. ENT: Hearing grossly normal. Nose without bleeding or purulent drainage. Throat without visible erythema, exudates, masses, or lesions. Dry mucosae The is an area of induration and mild erythema right beneath mandibular angle No fluctuance no drainage area is very mildly tender to palpation NECK: Trachea midline. Supple, nontender. No palpable thyroid enlargement or nodularity. CARDIOVASCULAR: Regular rate and rhythm without murmurs, gallops, or rubs. No JVD. Peripheral pulses symmetric. RESPIRATORY/CHEST: Symmetric, unlabored respirations. Clear to auscultation. Breath sounds equal bilaterally. No wheezes, rales, or rhonchi. GASTROINTESTINAL: Abdomen soft, non-tender, nondistended. No hepato-splenomegaly , or palpable masses. No guarding. Bowel sounds present. GENITOURINARY: Without palpable bladder distension. . MUSCULOSKELETAL: Extremities without clubbing, cyanosis, or edema. No joint tenderness or effusion noted. No calf tenderness. No mottling or clubbing. Multiple fingers are amputated 2/2 complications of Josias's sd LYMPHATICS: No palpable cervical or supraclavicular adenopathy. NEUROLOGICAL: Awake and alert. Motor and sensory grossly within normal limits. Follows commands. Cognitively sharp. Moves all extremities. PSYCHIATRIC: No obvious anxiety/depression. no apparent hallucinations or other psychotic thought process. Laboratory Laboratory Tests Test 02/18/17 10:07 White Blood Count 11.2 Red Blood Count 3.92 Hemoglobin 11.6 Hematocrit 35.5 Mean Corpuscular Volume 90.5 Mean Corpuscular Hemoglobin 29.6 Mean Corpuscular Hemoglobin 32.8 Concent Red Cell Distribution Width 15.4 Platelet Count 333 Mean Platelet Volume 7.8 Neutrophils (%) (Auto) 87.6 Lymphocytes (%) (Auto) 8.1 Monocytes (%) (Auto) 4.2 Eosinophils (%) (Auto) 0.0 Basophils (%) (Auto) 0.1 Neutrophils # (Auto) 9.8 Lymphocytes # (Auto) 0.9 Monocytes # (Auto) 0.5 Eosinophils # (Auto) 0.0 Basophils # (Auto) 0.0 CBC Comment AUTO DIFF Differential Total Cells 100 Counted Neutrophils % (Manual) 67 Band Neutrophils % 12 Lymphocytes % 11 Monocytes % 5 Neutrophils # (Manual) 9.4 Metamyelocytes 2 Myelocytes 2 Promyelocytes 1 Differential Comment FINAL DIFF MANUAL Platelet Estimate NORMAL Platelet Morphology Comment CLUMPED Date/Time Procedure Status Source Growth 02/15/17 16:11 Aerobic Blood Culture - Preliminary Resulted Blood Peripheral NO GROWTH IN 3 DAYS 02/15/17 16:11 Anaerobic Blood Culture - Preliminary Resulted Blood Peripheral NO GROWTH IN 3 DAYS Result Diagram: 02/18/17 1007 02/16/17 0431 Assessment and Plan Assessment and Plan Sialodenitis vs bacterial parotitis R parotid gland Scleroderma Unable to take pills recent [employer] specialist C.diff, on flagyl cont cefepime consider to switch to levaquine if able to take those pills Rx for 2 weeks including in-pt cefepime time Pt can fu with Dr Clayton if needed (non resolving parotitieis or new episode) call [phone] Discussed Condition With pt Noa Feng MD February 18, 2017 19:10
[2017-02-18] MEDS: ESCITALOPRAM OXALATE 20 MG TAB PO SCH (20:15)
[2017-02-19] VITALS: BP 191/93; PULSE 76; RESP 18; TEMP 96.7; O2SAT 98
[2017-02-19] MEDS: cloNIDine HCL 0.1 MG TAB PO PRN (00:30)
[2017-02-19 04:00] VITALS: BP 118/72; PULSE 77; RESP 18; TEMP 96.7; O2SAT 99
[2017-02-19] MEDS: metroNIDAZOLE 500 MG INJ 100 ML IV SCH ×2 (04:34→09:16)
[2017-02-19] MEDS ORDERED: CEFEPIME INJ 2,000 MG in SODIUM CHLORIDE 0.9% INJ 100 ML IV SCH (06:00)
[2017-02-19] MEDS: LEVOTHYROXINE SODIUM 125 MCG TAB PO SCH (06:17)
[2017-02-19] MEDS: DEXAMETHASONE SOD PHOS 4 MG/ML VIAL IV PUSH SCH (06:18)
[2017-02-19 08:00] VITALS: BP 182/100; PULSE 56; RESP 16; TEMP 97.3; O2SAT 96
[2017-02-19] MEDS: LACTOBACILLUS ACIDOPHILUS TAB PO SCH (09:17)
[2017-02-19] MEDS: SILDENAFIL CITRATE 20 MG TAB PO SCH (09:17)
[2017-02-19] MEDS: PANTOPRAZOLE SODIUM 40 MG VIAL IV PUSH SCH (09:18)
[2017-02-19] MEDS: SODIUM CHLORIDE 0.9% FLUSH 10 ML FLUSH IV FLUSH SCH (09:20)
[2017-02-19 12:00] VITALS: BP 120/76; PULSE 77; RESP 18; TEMP 98.1; O2SAT 97
[2017-02-19] MEDS ORDERED: LEVA500T PO ×2 (12:17→12:23)
[2017-02-19] MEDS ORDERED: PRED5TAB PO (12:17)
[2017-02-19] MEDS ORDERED: LEVO.125 PO (12:17)
[2017-02-19] MEDS ORDERED: METR-1 PO ×2 (12:17→12:23)
--- NOTE | 2017-02-19 12:25 | HHI.DS ---
Discharge Summary Admission Date February 15, 2017 at 5:49 pm Discharge Date: February 19, 2017 Admitting Diagnosis acute parotitis (1) Acute parotitis ICD Code: K11.21 Diagnosis: Principal (2) Scleroderma ICD Code: M34.9 (3) Hypertension ICD Code: I10 (4) Anxiety ICD Code: F41.9 Procedures None. Brief History - From Admission Ms. Whitlock is a pleasant 56 year old female with a history of scleroderma, mixed connective tissue disease, hypothyroidism who presents to the ED on 02/15/2017 on the advise of her ENT physician Dr. Culver due to concern over worsening right sided parotitis. About 7 days prior to this admission, patient started noticing right sided jaw area hardening. She reports no fever, chills. She took ibuprofen which did not provide any relief. She was evaluated in the ED 3 days prior to this admission and was discharged on Clindamycin and Flagyl. Today, patient went for a follow up with ENT and she was asked to come to the ED. At the time of this evaluation, patient is doing well. She complains of significant pain from her right parotid gland swelling. She reports no airway compromise. She has some difficulty with swallowing but feels that she can tolerate full liquid diet. She reports no changes in her bowel or bladder habits. Denies any chest pain, shortness of breath, cough. She is allergic to wide range of abx. She has taken penicillin before without difficulty, however. CBC/BMP: 02/18/17 1007 02/16/17 0431 Significant Findings Laboratory Tests Test 02/18/17 10:07 White Blood Count 11.2 TH/MM3 (4.0-11.0) Red Blood Count 3.92 MIL/MM3 (4.00-5.30) Neutrophils (%) (Auto) 87.6 % (16.0-70.0) Lymphocytes (%) (Auto) 8.1 % (9.0-44.0) Neutrophils # (Auto) 9.8 TH/MM3 (1.8-7.7) Lymphocytes # (Auto) 0.9 TH/MM3 (1.0-4.8) Band Neutrophils % 12 % (0-6) Neutrophils # (Manual) 9.4 TH/MM3 (1.8-7.7) Metamyelocytes 2 % (0-1) Myelocytes 2 % (0-0) Promyelocytes 1 % (0-0) Platelet Morphology Comment CLUMPED (NORMAL) PE at Discharge GENERAL: Alert, oriented x 3, NAD. SKIN: Warm and dry. HEAD: Normocephalic. EYES: No scleral icterus. No injection or drainage. NECK: Supple, trachea midline. No JVD or lymphadenopathy. Right jaw swelling is improved. Indurated area noted. Mildly tender to palpation. CARDIOVASCULAR: Regular rate and rhythm without murmurs, gallops, or rubs. RESPIRATORY: Breath sounds equal bilaterally. No accessory muscle use. GASTROINTESTINAL: Abdomen soft, non-tender, nondistended. MUSCULOSKELETAL: No cyanosis, or edema. BACK: Nontender without obvious deformity. No CVA tenderness. Pt update on day of discharge Ms. Whitlock is doing well. No acute concerns. Patient usually takes probiotics at home which she will continue. Hospital Course Ms. Whitlock, 56, presents to the ED on 02/15/2017 due to worsening acute right sided parotitis. She was evaluated by ENT and she was advised to come to the hospital. - Acute parotitis - Failed outpatient therapy with Clindamycin and Flagyl. - ENT is following patient. - Continued Cefepime 2g Q12hrs and Metronidazole 500mg IV Q6hrs in the hospital. - Acetaminophen, [place], Dilaudid IV for pain PRN - Patient's parotitis is likely inflammatory and responded well to Decadron. - ID recommended Levaquin and Flagyl on discharge. - Accelerated Hypertension - Possibly due to use of Prednisone as well as Ibuprofen and pain. - Discontinued ibuprofen. We'll continue to monitor blood pressure. - Patient is advised to monitor her blood pressure at home. A blood pressure remains elevated, first on blood pressure medication such as lisinopril , amlodipine can be used. - Scleroderma - Mixed connective tissue disorder - Patient follows up with [facility]. - Anxiety/Depression - Continue Lexapro 20mg Qday and Xanax 0.25mg QHS. - Hypothyroidism - Continue Levothyroxine 62.5 mcg QAM. Pt Condition on Discharge: Good Discharge Disposition: Discharge Home Discharge Time: > 30 minutes Discharge Instructions DIET: Follow Instructions for: As Tolerated, No Restrictions Activities you can perform: Regular-No Restrictions Follow up Referrals: Ear Nose Throat - 1 Week with Deni Culver MD PCP Follow-up - 1 Week New Medications: Levofloxacin (Levaquin) 500 Mg Tab 500 MG PO DAILY Infection #10 Ref 0 TAB Metronidazole (Flagyl) 500 Mg Tab 500 MG PO TID Infection #30 Ref 0 TAB Prednisone (Prednisone) 5 Mg Tab 20 MG PO BID 20mg TWICE A DAy for 3 days THEN 15mg TWICE A day for 3 days THEN 10mg TWICE A DAY for 3 days THEN 5 mg TWICE A DAY for 3 days THEN 5 mg ONCE A DAY (Patient's regular prescription is 5mg Once a day). Inflammation #60 Ref 0 TAB Levothyroxine (Synthroid) 125 Mcg Tab 62.5 MCG PO DAILY@06 Thyroid #30 TAB Continued Medications: Alprazolam (Xanax) 0.25 Mg Tab 0.25 MG PO HS PRN ANXIETY Ref 0 TAB Escitalopram (Escitalopram) 20 Mg Tab 20 MG PO DAILY #30 Ref 0 TAB Hydrocodone-Acetaminophen ([place]) 5-325 mg Tab 1-2 TAB PO Q6H PRN PAIN #40 Ref 0 TAB Pilocarpine (Pilocarpine) 5 Mg Tab 5 MG PO Q8HR Dry Mouth #30 Ref 0 TAB Prednisone (Prednisone) 5 Mg Tab 5 MG PO DAILY Ref 0 TAB Sildenafil (Sildenafil) 20 Mg Tab 20 MG PO BID Pulm. arterial hypertension #90 Ref 0 TAB Discontinued Medications: Clindamycin (Clindamycin) 300 Mg Cap 300 MG PO Q6H Infection Days 10 Ref 0 CAP Levothyroxine (Levothyroxine) 200 Mcg Tab 625 MCG PO DAILY Thyroid #30 Ref 0 TAB Metronidazole (Flagyl) 500 Mg Tab 500 MG PO BID Infection Days 10 Ref 0 TAB Shanita Elmore DO February 19, 2017 12:24
[2017-03-18] MEDS ORDERED: NYST1000 SWISH-SWAL (08:56)
== END 2017-02-19 12:54 | disposition home or self-care (01) | DRG 156 ==
LOC: NEPC 12:04 → NEDA 17:49 → NEPHCDU 21:35 → HOCA 02-16 21:17
PROVIDERS: ADMIT Hospitalist; ATTEND Hospitalist
DX: K11.21 Acute sialoadenitis (principal); M34.9 Systemic sclerosis, unspecified; M19.90 Unspecified osteoarthritis, unspecified site; F41.9 Anxiety disorder, unspecified; E03.9 Hypothyroidism, unspecified; Z88.1 Allergy status to other antibiotic agents; Z88.5 Allergy status to narcotic agent; Z88.2 Allergy status to sulfonamides; I10 Essential (primary) hypertension; F32.9 Major depressive disorder, single episode, unspecified; Z80.8 Family history of malignant neoplasm of other organs or systems; Z82.5 Family history of asthma and other chronic lower respiratory diseases; Z82.3 Family history of stroke; Z82.49 Family history of ischemic heart disease and other diseases of the circulatory system; R49.0 Dysphonia; Z79.82 Long term (current) use of aspirin; Z79.899 Other long term (current) drug therapy; Z87.2 Personal history of diseases of the skin and subcutaneous tissue
CPT/HCPCS: 70450; 70491; 71020; 80048; 80053; 83735; 85007; 85025; 85027; 85610; 85730; 86140; 87040; 96365; 96375; C9113; J0692; J1100; J1170; J1650; J7030; J7512; Q9967